=== PATIENT | female | born 1950 | race Caucasian/White ===

== ENCOUNTER 2022-04-15 12:35 | Emergency (ER) | payer MEDICARE, SELFPAY ==
--- NOTE | ~2022-04-15 | CT_ITS ---
EXAMINATION: CT brain wo con DATE: 04/15/2022 12:53 INDICATION: Right facial numbness TECHNIQUE: Computed tomography (CT) of the head was performed without intravenous contrast. The mA wa s adjusted according to patient size. Iterative reconstruction technique was employed. Exam dose: 52 9.67 mGy-cm total exam DLP. COMPARISON: None FINDINGS: There is subtle hyperdensity along the high left frontal cortex consistent with minimal cer ebral contusion or hemorrhage or hemorrhagic cerebrovascular accident. Minimal bilateral basal ganglia calcification. Bilateral carotid siphon and supraclinoid internal carotid artery calcifications. There is nonspecifi c diminished attenuation of the cerebral white matter, consistent with chronic small vessel ischemic changes. No intracranial mass lesion or midline shift or mass effect effect is detected. There are small subdural is suggested high over the anteromedial left frontal convexity. No subdural or epidural hematoma is noted otherwise. Included paranasal sinuses and mastoid air cells are normally developed and aerated. No fracture or bone destruction of the cranial vault. IMPRESSION: Very small high anteromedial left frontal subdural hematoma is suggested Focal hyperdensity along the high anteromedial left frontal cortex which may represent a small contus ion or hemorrhage or hemorrhagic cerebrovascular accident. Dr. Melendrez telephoned the results on 04/11/2022 at 1308 hours to emergency room physician Dr. Dodd. Reviewed, dictated and finalized at [facility]. Reviewed, dictated and finalized at [facility]. ATAL NURSE PRACTITIONER IMPRESSION: Very small high anteromedial left frontal subdural hematoma is sug gested Focal hyperdensity along the high anteromedial left frontal cortex which may re present a small contusion or hemorrhage or hemorrhagic cerebrovascular accident . Dr. Melendrez telephoned the results on 04/11/2022 at 1308 hours to emergency room lia Dodd.
--- NOTE | ~2022-04-15 | XR_ITS ---
XR chest 2V DATE: 04/15/2022 13:27 INDICATION: Stroke symptoms TECHNIQUE: PA and lateral chest COMPARISON: None FINDINGS: Normal heart size. No hilar or mediastinal enlargement. The lungs are moderately hyperinflated suggesting obstructive airways disease. No pulmonary infiltrat e or consolidation, pleural effusion or pulmonary vascular congestion or pneumothorax. Diffuse osteopenia. IMPRESSION: Moderate hyperinflation; no active cardiac pulmonary disease Reviewed, dictated and finalized at [facility] [employer] AND PATTERNMAKER
--- NOTE | ~2022-04-15 | CT_ITS ---
EXAMINATION: CTA BRAIN/CAROTID DATE: 04/15/2022 14:14 INDICATION: Stroke. Subarachnoid hemorrhage on prior CT . TECHNIQUE: Computed tomographic angiography (CTA) of the head and neck was performed with 100 mL Omni paque-350 intravenous contrast. Multiplanar reconstructions and maximum intensity projection 3D-recon structions of the carotid arteries and of the intracranial arteries were created by the technologist on a separate workstation. Automated exposure control and iterative reconstruction technique were emp loyed.The dose-length product was 842.61 mGy-cm. COMPARISON: Head CT dated 04/15/2022 FINDINGS: Carotid arteries: . There is portions the aortic arch antegrade vessels arising from the arch are normal in caliber wit h no dissection or evident atherosclerotic plaque. There is no evident atherosclerotic plaque with 0% stenosis of the right and left carotid bulbs relative to normal distal artery lumen diameter (NASCET criteria). Mild biapical pleural-parenchymal scarring. Prominent bleb along the suprahilar paramedia stinal right upper lobe. Cervical soft tissues are unremarkable. Moderate to severe lower cervical sp ondylosis. Intracranial arteries There is no hemodynamically significant stenosis in the vertebral, basilar and internal carotid arter ies. Vertebral arteries are codominant. There are no aneurysms identified. Both A1 and P1 segments a re patent. The left P1 segment is diminutive with majority of flow supplied to the left posterior cer ebral artery via a patent large caliber left posterior communicating artery. There is also a patent a nterior communicating artery. Cerebral arterial arborization appears symmetric. No abnormally enhanci ng brain lesions. No evident active contrast extravasation at the site of the small left frontal suba rachnoid hematoma. The lesion suspected of a possible small high anteromedial left frontal subdural h ematoma on prior CT appears to correspond to a mildly prominent enhancing subdural vein. No abnormal extra-axial fluid collections identified. IMPRESSION: 1. 0% stenosis of the right and left carotid bulbs relative to normal distal artery lumen diameter (N ASCET criteria). 2. Normal angiographic portion of the cerebral CT angiogram with no hemodynamically significant steno sis, dissection or aneurysm. 3. No evident contrast extravasation at the site of a previously noted small anterosuperior left fron laura subarachnoid hemorrhage. No subdural/epidural hematoma or other abnormal extra axial fluid collec tions. The lesion of concern on prior CT appears to correspond to a mildly prominent but otherwise no rmal contrast enhancing subdural vein. Reviewed, dictated and finalized at [facility]. ARMS EXPERT IMPRESSION: 1. 0% stenosis of the right and left carotid bulbs relative to normal distal ar alisia lumen diameter (NASCET criteria). 2. Normal angiographic portion of the cerebral CT angiogram with no hemodynamic ally significant stenosis, dissection or aneurysm. 3. No evident contrast extravasation at the site of a previously noted small an terosuperior left frontal subarachnoid hemorrhage. No subdural/epidural hematom a or other abnormal extra axial fluid collections. The lesion of concern on coni or CT appears to correspond to a mildly prominent but otherwise normal contrast enhancing subdural vein.
[2022-04-15 12:37] VITALS: BP 164/74; PULSE 90; RESP 16; TEMP 36.4; O2SAT 100
--- NOTE | 2022-04-15 12:50 | ED.NEUROSD ---
HPI - Neuro Symptoms/Deficit General Chief Complaint: Neuro Symptoms/Deficit Stated Complaint: neuro Time Seen by Provider: 04/15/22 12:37 History of Present Illness HPI Narrative: Patient is a 71-year-old female who presents ER with concern for strokelike symptoms. At 1230 she was in her kitchen cooking some droplets when she started to feel the right face began to go numb. She then noticed she was unable to speak properly with slurred speech. She looked in the mirror and she cannot move the right side of her face. Her witnessed this event. She also afterwards and began to develop numbness in her finger and wrist on the right side. She then had some tingling in her right mid abdomen. After CT scan she she reports the tingling that was in her stomach is resolved and all other tingling/numbness and deficits had resolved prior to arrival to ER. Patient has history of complex migraines and was seen by a neurologist at [facility]. Patient reports prior to symptom onset she had been having heart palpitations for approximately 1 hour. There were periods where her heart was racing and then periods where her heart was skipping beats. 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 She has had intermittent palpitations for several years with only being diagnosed with PVCs. Patient is on no blood thinners or antiplatelet medications. Denies history of CVA. Last MRI was 9 months ago. No head trauma today/yesterday. Related Data Allergies Allergy/AdvReac Type Severity Reaction Status Date / Time No Known Allergies Allergy Verified 04/15/22 13:05 Review of Systems Review of Systems: All systems reviewed & are unremarkable except as noted in HPI and below Constitutional: Constitutional: Denies chills and Denies fever(s) Eyes: Eyes: Denies change in vision and Denies photophobia ENT: Denies nasal congestion and Denies sore throat Cardiovascular: Cardiovascular: Denies chest pain, Reports rapid heart rate and Denies radiating jaw, neck or arm pain Respiratory: Respiratory: Denies cough and Denies dyspnea Neurologic: Denies syncope, Reports headache(s), Reports focal weakness and Reports numbness PMFSH Past Medical History Medical History (Updated 04/15/22 @ 16:18 by Blake Dodd MD) Migraines Surgical History Surgical History (Updated 04/15/22 @ 13:28 by Blake Dodd MD) History of hysterectomy Social History Social History (Updated 04/15/22 @ 13:29 by Blake Dodd MD) Smoking status: Never smoker Exam Narrative: GENERAL: Well-appearing, well-nourished, and in no acute distress. HEAD: Normocephalic, atraumatic. EYES: PERRL and EOMI. ENT: Mucous membranes moist. CHEST: Clear to auscultation. No respiratory distress. HEART: Regular rate and rhythm. Normal peripheral pulses. ABDOMEN: Soft, nontender, nondistended. EXTREMITIES: Normal range of motion. No edema. SKIN: Warm, dry, no rash. NEURO: Facial droop. No upper or lower extremity drift. Normal finger-nose testing and [id number] testing. Patient reports vision is normal and sensation is normal. Alert and oriented x3. PSYCH: Normal mood and affect. Course Reevaluation(s) Reevaluation #1: Discussed with Dr. Ram with neurology at [facility]. Accepted on wait list. Not felt to be time critical. Recommends CTA to r/o active extravisation of contrast which would make patient emergent. Given the situation will contact [facility] where patients neurologist is located, Dr. Gen Bateman. Date: 04/15/22 Time: 13:30 Reevaluation #2: Accepted by Dr. Rose at [facility], Dr. Peters with neurology happy to consult and is aware of small SAH w/o aneurysm or areas of ischemia on CTA. Date: 04/15/22 Time: 15:38 Vital Signs Vital signs: Vital Signs Temperature 97.5 F L 04/15/22 12:37 Pulse Rate 90 04/15/22 12:37 Respiratory Rate 16 04/15/22 12:37 Blood Pressure 164/74 H 04/15/22 12:37 Pulse Oximetry 100 04/15/22 12:37 T
[2022-04-15 12:55] LABS: Glucose Point of Care 122 mg/dl (65-105)
--- NOTE | 2022-04-15 13:00 | ECG_ITS ---
Measurements Intervals Fate Rate: 81 P: 54 NJ: 185 QRS: -5 QRSD: 82 T: 39 QT: 378 QTc: 440 Interpretive Statements SINUS RHYTHM ATRIAL PREMATURE COMPLEXES RSR' IN V1 OR V2, PROBABLY NORMAL VARIANT BASELINE ARTIFACT- I, II BORDERLINE ECG NO PREVIOUS ECG AVAILABLE FOR COMPARISON Electronically Signed On 04-15-2022 14:36:20 [employer] by Juan Acosta D.O.
[2022-04-15 13:06] LABS: Basophils Percent Auto 0.5 % (0.2-1.2); Eosinophils Absolute Auto 0.1 K/mm3 (0-0.3); Eosinophils Percent Auto 1.5 % (0-4.4); Hematocrit 36.1 % (37.0-47.0); Immature Granulocyte Absolute 0.02 K/mm3 (0.00-0.031); Immature Granulocyte Percent A 0.3 % (0-0.5); Lymphocytes Absolute Auto 3.23 K/mm3 (0.9-3.2); Lymphocytes Percent Auto 41.3 % (18.3-44.2); Mean Corpuscular HGB Conc 33.2 g/dl (32-36); Mean Corpuscular Hemoglobin 30.8 pg (26-34); Mean Corpuscular Volume 92.6 fl (80-100); Monocytes Absolute Auto 0.6 K/mm3 (0.1-0.6); Monocytes Percent Auto 7.8 % (2.6-8.5); Neutrophils Absolute Auto 3.8 K/mm3 (1.3-6.7); Neutrophils Percent Auto 48.6 % (45.5-73.1); Platelet Count Result 387 k/mm3 (150-375); Red Cell Distribution Width 13.2 % (11.5-14.5); White Blood Count 7.8 K/mm3 (4.5-10.0)
[2022-04-15] MEDS: Please add drug allergy info to patient profile. 1 EACH XX (13:06)
[2022-04-15 13:16] LABS: Alanine Aminotransferase 29 U/L (6-35); Albumin Level 4.5 g/dL (3.5-5.1); Alkaline Phosphatase 59 U/L (38-126); Anion Gap 10 mmol/L (8-16); Aspartate Amino Transferase 39 U/L (14-36); Bilirubin,Total 0.3 mg/dL (0.2-1.3); Blood Urea Nitrogen 13 mg/dL (7-17); Calcium 8.9 mg/dL (8.4-10.2); Carbon Dioxide 26 mmol/L (22-30); Chloride 99 mmol/L (98-107); Estimated Glomerular Filt Rate > 60; Glucose 113 mg/dL (65-110); Potassium 4.2 mmol/L (3.4-5.0); Sodium 135 mmol/L (137-145)
[2022-04-15 13:18] LABS: INR 0.9; Prothrombin Time 12.1 Seconds (11.1-14.7)
[2022-04-15 13:19] LABS: Partial Thromboplastin Time 27.1 SECONDS (22.3-36.8)
[2022-04-15 13:27] LABS: Troponin I < 0.012 ng/mL (0.000-0.034)
[2022-04-15 13:41] VITALS: BP 153/76; PULSE 76; RESP 18; O2SAT 100
[2022-04-15 14:18] LABS: Add Urine Microscopic? YES; Appearance Urine Clear (Clear); Bilirubin Urine Negative (Negative); Blood Urine Trace-intact (Negative); Color Urine Yellow (Yellow); Glucose Urine UA Negative (Negative); Ketones Urine Negative (Negative); Leukocyte Esterase Ur 1+ LEU/UL (Negative); Nitrate Urine Negative (Negative); Protein Urine Negative (Negative); Urobilinogen Urine 0.2 mg/dL (<2.0)
[2022-04-15 14:22] LABS: Mucus Urine Rare /lpf; Squamous Epithelial Cell Urine Occasional /hpf (Few)
[2022-04-15 15:06] VITALS: BP 127/65; PULSE 73; RESP 17; O2SAT 100
[2022-04-15 17:29] VITALS: BP 133/73; PULSE 77; RESP 18; O2SAT 100
== END 2022-04-15 17:33 | disposition short-term general hospital (02) ==
PROVIDERS: Emergency Provider Emergency Medicine
DX: I60.9 Nontraumatic subarachnoid hemorrhage, unspecified (principal); Z90.710 Acquired absence of both cervix and uterus; I49.1 Atrial premature depolarization
CPT/HCPCS: 36415; 70450; 70496; 70498; 71046; 80053; 81001; 82948; 84484; 85025; 85610; 85730; 93005; 99284; Q9967